=== PATIENT | male | born 1935 | race Caucasian/White ===

== ENCOUNTER 2023-10-22 15:46 | Inpatient (IN) | payer MEDICARE ==
[~2023-10-22] VITALS: Ht 180.3 cm; Wt 85.7 kg
[2023-10-22] MEDS ORDERED: TYLENOL325 M2 PO (16:44)
[2023-10-22] MEDS ORDERED: 'CLONIDINE0.1 MG PO (16:45)
[2023-10-22] MEDS ORDERED: DEPAKOTE125 M1 PO (16:46)
[2023-10-22] MEDS ORDERED: DOCUSATE SOD100 MG PO (16:47)
[2023-10-22] MEDS ORDERED: VISTARIL25 MG PO (16:48)
[2023-10-22] MEDS ORDERED: MILK OF MA400 MG/53 PO (16:49)
[2023-10-22] MEDS ORDERED: REMERON15 M2 PO (16:50)
[2023-10-22] MEDS ORDERED: ALDACTONE25 M1 PO (16:50)
[2023-10-22] MEDS ORDERED: TRAMADOL HCL50 MG PO (16:51)
[2023-10-22] MEDS ORDERED: ATIVAN T (16:52)
[2023-10-22] MEDS ORDERED: RISPERIDONE M-0.5 MG PO (16:53)
[2023-10-22 17:42] VITALS: BP 130/78
[2023-10-22] MEDS ORDERED: Magnesium Hydroxide 30 ML UDC PO PRN ×2 (18:45→20:20)
[2023-10-22] MEDS ORDERED: ACETAMINOPHEN 325 MG TAB PO PRN (18:45)
[2023-10-22] MEDS ORDERED: MG-AL HYDROXIDE/SIMETICONE 30 ML UDC PO PRN (18:45)
[2023-10-22] MEDS ORDERED: LORazepam 1 MG TAB PO PRN (18:55)
[2023-10-22] MEDS ORDERED: LORazepam 2 MG/ML VIAL IM PRN (18:55)
[2023-10-22] MEDS ORDERED: Water, Sterile 10 ML VIAL IM PRN (19:00)
[2023-10-22] MEDS ORDERED: Ziprasidone Mesylate 20 MG VIAL IM PRN (19:00)
[2023-10-22 20:00] VITALS: BP 150/91
[2023-10-22] MEDS ORDERED: cloNIDine Hydrochloride 0.1 MG TAB PO PRN (20:20)
[2023-10-22] MEDS ORDERED: DOCUSATE SODIUM 100 MG CAP PO SCH (21:00)
[2023-10-22] MEDS ORDERED: RISPERIDONE 0.5 MG ODT OGT SCH (21:00)
[2023-10-22] MEDS ORDERED: Memantine Hydrochloride 5 MG TAB PO SCH (21:00)
[2023-10-23 06:51] LABS: BASO % 0.4 % (0.0-1.0); EOS # 0.2 10*3/uL (0.0-0.4); EOS % 3.8 % (1.0-4.0); HEMATOCRIT 43.3 % (42.0-52.0); LYMPH # 1.6 10*3/uL (1.3-4.4); LYMPH % 29.2 % (27.0-41.0); MEAN CELL VOLUME 96.4 fl (80.0-94.0); MEAN CORPUSCULAR HGB 32.5 pg (27.0-31.0); MEAN CORPUSCULAR HGB CONC 33.7 g/dl (33.0-37.0); MEAN PLATELET VOLUME 10.6 fl (9.6-12.3); MONO # 0.7 10*3/uL (0.1-1.0); NEUT % 54.4 % (47.0-73.0); PLATELET COUNT AUTOMATED 189 10*3/uL (130-400); RED BLOOD COUNT 4.49 10*6/uL (4.50-5.90); RED CELL DISTRI WIDTH 12.9 % (0-14.5); WHITE BLOOD COUNT 5.5 10*3/uL (4.8-10.8)
[2023-10-23 07:22] LABS: ALKALINE PHOSPHATASE 66 U/L (46-116); BUN 11 mg/dl (9-23); CHLORIDE 105 mmol/L (98-107); CHOLESTEROL 222 mg/dL (<200); LDL CHOLESTEROL 153 mg/dL (9-159); POTASSIUM 3.8 mmol/L (3.4-5.1); SGPT/ALT 7 U/L (5-49); TOTAL PROTEIN 6.9 gm/dL (6.0-8.0); TRIGLYCERIDES 115 mg/dl (<150)
[2023-10-23 07:35] LABS: VITAMIN D, 25-HYDROXY 47.8 ng/mL (30-100)
[2023-10-23 08:00] VITALS: BP 111/71
[2023-10-23] MEDS ORDERED: Rivastigmine Tartrate 4.6 MG/24 HR PATCH T SCH (09:00)
[2023-10-23] MEDS ORDERED: SPIRONOLACTONE 25 MG TAB PO SCH (09:00)
[2023-10-23 20:00] VITALS: BP 93/60
[2023-10-24 08:00] VITALS: BP 146/82
[2023-10-24] MEDS ORDERED: Memantine Hydrochloride 5 MG TAB PO SCH (09:00)
[2023-10-24 18:30] VITALS: BP 98/77
[2023-10-25 08:00] VITALS: BP 144/78
[2023-10-25] MEDS ORDERED: Rivastigmine Tartrate 9.5 MG/24 HR PATCH T SCH (09:00)
[2023-10-25 19:22] VITALS: BP 133/78
[2023-10-26] MEDS ORDERED: QUETIAPINE FUMARATE 25 MG TAB PO SCH ×2 (09:00→21:00)
[2023-10-26] MEDS ORDERED: Memantine Hydrochloride 5 MG TAB PO SCH (09:00)
[2023-10-26] MEDS ORDERED: RISPERIDONE 0.5 MG ODT OGT SCH (13:00)
[2023-10-26 20:00] VITALS: BP 138/74
[2023-10-26] MEDS ORDERED: QUETIAPINE FUMARATE 50 MG TAB PO SCH (21:00)
[2023-10-26] MEDS ORDERED: Memantine Hydrochloride 10 MG TAB PO SCH (21:00)
[2023-10-27 08:00] VITALS: BP 163/84
[2023-10-27 16:34] LABS: BILIRUBIN Negative (Negative); BLOOD 2+ (Negative); CLARITY Cloudy (Clear); COLOR Yellow (Yellow); GLUCOSE Negative (Negative); KETONE Trace (Negative); LEUKO ESTERASE Trace (Negative); NITRITE Negative (Negative); PH 5.5 (4.5-8.0)
[2023-10-27 16:53] LABS: RBC 21-30 rbc/hpf (0-2)
[2023-10-27 16:55] LABS: BACTERIA 1+
[2023-10-27 18:51] VITALS: BP 143/88
[2023-10-27] MEDS ORDERED: hydrOXYzine pamoate 25 MG CAP PO PRN (19:10)
[2023-10-27] MEDS ORDERED: QUETIAPINE FUMARATE 50 MG TAB PO SCH (21:00)
[2023-10-28 08:00] VITALS: BP 147/83
[2023-10-28] MEDS ORDERED: RIVASTIGMINE 13.3 MG/24 HR TDM T SCH (09:00)
[2023-10-28] MEDS ORDERED: hydrOXYzine hydrochloride 50 MG/ML VIAL IM PRN (10:15)
[2023-10-28 20:00] VITALS: BP 115/81
[2023-10-28] MEDS ORDERED: Memantine Hydrochloride 10 MG TAB PO SCH (21:00)
[2023-10-29 07:38] VITALS: BP 166/80
[2023-10-29] MEDS ORDERED: QUETIAPINE FUMARATE 50 MG TAB PO SCH (13:00)
[2023-10-29 20:32] VITALS: BP 139/68
[2023-10-30 08:00] VITALS: BP 115/67
[2023-10-30 20:00] VITALS: BP 130/73
[2023-10-31 07:48] LABS: BASO % 0.5 % (0.0-1.0); EOS # 0.1 10*3/uL (0.0-0.4); EOS % 2.4 % (1.0-4.0); HEMATOCRIT 40.5 % (42.0-52.0); LYMPH # 2.2 10*3/uL (1.3-4.4); LYMPH % 37.7 % (27.0-41.0); MEAN CELL VOLUME 95.5 fl (80.0-94.0); MEAN CORPUSCULAR HGB 32.1 pg (27.0-31.0); MEAN CORPUSCULAR HGB CONC 33.6 g/dl (33.0-37.0); MONO % 16.7 % (3.0-9.0); NEUT # 2.5 10*3/uL (2.3-7.9); NEUT % 42.5 % (47.0-73.0); PLATELET COUNT AUTOMATED 181 10*3/uL (130-400); RED BLOOD COUNT 4.24 10*6/uL (4.50-5.90); RED CELL DISTRI WIDTH 12.7 % (0-14.5); WHITE BLOOD COUNT 5.8 10*3/uL (4.8-10.8)
[2023-10-31 08:13] LABS: ALKALINE PHOSPHATASE 68 U/L (46-116); BUN 14 mg/dl (9-23); CHLORIDE 106 mmol/L (98-107); POTASSIUM 3.5 mmol/L (3.4-5.1); SGPT/ALT 19 U/L (5-49); TOTAL PROTEIN 6.9 gm/dL (6.0-8.0)
[2023-10-31 09:21] VITALS: BP 118/65
[2023-10-31 20:00] VITALS: BP 134/68
[2023-11-01 07:47] VITALS: BP 135/84
[2023-11-01 20:00] VITALS: BP 151/84
[2023-11-02 07:32] VITALS: BP 131/76; BP 151/86
[2023-11-03 20:00] VITALS: BP 120/92
[2023-11-04 07:57] VITALS: BP 142/88
[2023-11-04 20:00] VITALS: BP 119/102
[2023-11-05 07:49] VITALS: BP 150/70
[2023-11-05 19:11] VITALS: BP 128/91
[2023-11-06 07:48] VITALS: BP 160/77
[2023-11-06 08:10] VITALS: BP 140/80
[2023-11-06] MEDS ORDERED: MEMANTINE HCL10 MG PO (10:13)
[2023-11-06] MEDS ORDERED: RIVASTIGMINE1 EAC2 T (10:13)
[2023-11-06] MEDS ORDERED: QUETIAPINE FUMA50 M1 PO (10:13)
== END 2023-11-06 12:29 | DRG 883 ==
LOC: 3N 15:46
PROVIDERS: Nurse Practitioner; ADMIT Psychiatry & Neurology Psychiatry; ATTEND Psychiatry & Neurology Psychiatry
PROC: GZHZZZZ Group Psychotherapy (ICD-10-PCS; principal; 2023-10-25)
PROC: GZ51ZZZ Individual Psychotherapy, Behavioral (ICD-10-PCS; 2023-10-25)
DX: F63.81 Intermittent explosive disorder (principal); E87.1 Hypo-osmolality and hyponatremia; F25.9 Schizoaffective disorder, unspecified; G30.9 Alzheimer's disease, unspecified; F02.80 Dementia in other diseases classified elsewhere, unspecified severity, without behavioral disturbance, psychotic disturbance, mood disturbance, and anxiety; I10 Essential (primary) hypertension; Z66 Do not resuscitate; Z79.1 Long term (current) use of non-steroidal anti-inflammatories (NSAID); Z79.899 Other long term (current) drug therapy

== ENCOUNTER 2024-01-02 15:29 | Inpatient (IN) | payer MEDICARE ==
[~2024-01-02 15:29] MED LIST: 'CLONIDINE0.1 MG PO; ALDACTONE25 M1 PO; ATIVAN T; DEPAKOTE125 M1 PO; DOCUSATE SOD100 MG PO; MEMANTINE HCL10 MG PO; MILK OF MA400 MG/53 PO; QUETIAPINE FUMA50 M1 PO; REMERON15 M2 PO; RISPERIDONE M-0.5 MG PO; RIVASTIGMINE1 EAC2 T; TRAMADOL HCL50 MG PO; TYLENOL325 M2 PO; VISTARIL25 MG PO
[2024-01-02 15:43] VITALS: BP 179/94
[2024-01-02] MEDS ORDERED: NAMENDA-5 PO (15:51)
[2024-01-02] MEDS ORDERED: QUETIAPINE FUM100 M1 PO (15:52)
[2024-01-02 16:06] LABS: BASO % 0.6 % (0.0-1.0); EOS # 0.1 10*3/uL (0.0-0.4); EOS % 2.2 % (1.0-4.0); HEMATOCRIT 43.7 % (42.0-52.0); LYMPH # 1.8 10*3/uL (1.3-4.4); LYMPH % 33.4 % (27.0-41.0); MEAN CELL VOLUME 94.4 fl (80.0-94.0); MEAN CORPUSCULAR HGB 31.5 pg (27.0-31.0); MEAN CORPUSCULAR HGB CONC 33.4 g/dl (33.0-37.0); MEAN PLATELET VOLUME 10.3 fl (9.6-12.3); MONO # 0.4 10*3/uL (0.1-1.0); MONO % 8.2 % (3.0-9.0); NEUT % 55.2 % (47.0-73.0); PLATELET COUNT AUTOMATED 213 10*3/uL (130-400); RED BLOOD COUNT 4.63 10*6/uL (4.50-5.90); RED CELL DISTRI WIDTH 12.9 % (0-14.5); WHITE BLOOD COUNT 5.4 10*3/uL (4.8-10.8)
[2024-01-02 16:32] LABS: BUN 16 mg/dl (9-23); CHLORIDE 104 mmol/L (98-107); POTASSIUM 4.2 mmol/L (3.4-5.1)
[2024-01-02 16:36] LABS: ETHYL ALCOHOL < 3.0 mg/dl (<3)
[2024-01-02 20:00] VITALS: BP 142/70
[2024-01-02] MEDS ORDERED: hydrOXYzine pamoate 25 MG CAP PO PRN (20:05)
[2024-01-02] MEDS ORDERED: hydrOXYzine hydrochloride 50 MG/ML VIAL IM PRN (20:05)
[2024-01-02] MEDS ORDERED: Ziprasidone Mesylate 20 MG VIAL IM PRN (20:05)
[2024-01-02] MEDS ORDERED: Water, Sterile 10 ML VIAL IM PRN (20:10)
[2024-01-02] MEDS ORDERED: ACETAMINOPHEN 325 MG TAB PO PRN (20:30)
[2024-01-02] MEDS ORDERED: Magnesium Hydroxide 30 ML UDC PO PRN (20:30)
[2024-01-02] MEDS ORDERED: MG-AL HYDROXIDE/SIMETICONE 30 ML UDC PO PRN (20:30)
[2024-01-02] MEDS ORDERED: Menthol/Zinc Oxide 4 GM THIN T PRN (20:35)
[2024-01-02] MEDS ORDERED: Memantine Hydrochloride 5 MG TAB PO SCH (21:00)
[2024-01-02] MEDS ORDERED: QUETIAPINE FUMARATE 100 MG TAB PO SCH (21:00)
[2024-01-02] MEDS ORDERED: DIVALPROEX (DR) 250 MG TAB PO SCH (21:00)
[2024-01-03 03:04] LABS: BILIRUBIN Negative (Negative); BLOOD Negative (Negative); CLARITY Clear (Clear); COLOR Yellow (Yellow); GLUCOSE Negative (Negative); KETONE Negative (Negative); LEUKO ESTERASE Negative (Negative); NITRITE Negative (Negative); PH 6.5 (4.5-8.0); UROBILINOGEN 0.2 E.U./dl (0.0-1.0)
[2024-01-03 03:10] LABS: URINE AMPHETAMINES Negative (1000ng/ml); URINE BARBITURATES Negative (200ng/ml); URINE BENZODIAZEPINES Negative (200ng/ml); URINE CANNABINOIDS (THC) Negative (50ng/ml); URINE COCAINE Negative (300ng/ml); URINE METHADONE Negative (300ng/ml); URINE OPIATES Negative (300ng/ml); URINE PHENCYCLIDINE Negative (25ng/ml)
[2024-01-03 03:11] LABS: WBC 0-2 wbc/hpf (0-5)
[2024-01-03 08:00] VITALS: BP 160/97
[2024-01-03] MEDS ORDERED: DOCUSATE SODIUM 100 MG CAP PO SCH (09:00)
[2024-01-03] MEDS ORDERED: SPIRONOLACTONE 25 MG TAB PO SCH (09:00)
[2024-01-03] MEDS ORDERED: RIVASTIGMINE 13.3 MG/24 HR TDM T SCH (09:00)
[2024-01-03 10:57] LABS: VITAMIN D, 25-HYDROXY 35.4 ng/mL (30-100)
[2024-01-03] MEDS ORDERED: QUETIAPINE FUMARATE 100 MG TAB PO SCH (13:00)
[2024-01-03 19:55] VITALS: BP 146/92
[2024-01-04] MEDS ORDERED: DIVALPROEX SODIUM 125 MG TAB PO SCH (09:00)
[2024-01-04 20:00] VITALS: BP 122/62
[2024-01-04] MEDS ORDERED: DIVALPROEX SODIUM 125 MG CAP PO SCH (21:00)
[2024-01-05 20:00] VITALS: BP 124/96
[2024-01-06] MEDS ORDERED: LORazepam 2 MG/ML VIAL IM ONE ×2 (19:00→19:05)
[2024-01-06 20:00] VITALS: BP 143/73
[2024-01-07 06:43] LABS: BASO % 0.1 % (0.0-1.0); EOS % 0.1 % (1.0-4.0); HEMATOCRIT 42.4 % (42.0-52.0); LYMPH # 1.8 10*3/uL (1.3-4.4); LYMPH % 24.2 % (27.0-41.0); MEAN CELL VOLUME 92.8 fl (80.0-94.0); MEAN CORPUSCULAR HGB 31.3 pg (27.0-31.0); MEAN CORPUSCULAR HGB CONC 33.7 g/dl (33.0-37.0); MEAN PLATELET VOLUME 10.5 fl (9.6-12.3); MONO # 0.3 10*3/uL (0.1-1.0); MONO % 4.4 % (3.0-9.0); NEUT # 5.4 10*3/uL (2.3-7.9); NEUT % 71.1 % (47.0-73.0); PLATELET COUNT AUTOMATED 222 10*3/uL (130-400); RED BLOOD COUNT 4.57 10*6/uL (4.50-5.90); RED CELL DISTRI WIDTH 12.6 % (0-14.5); WHITE BLOOD COUNT 7.6 10*3/uL (4.8-10.8)
[2024-01-07 07:02] LABS: ALKALINE PHOSPHATASE 75 U/L (46-116); BUN 19 mg/dl (9-23); CHLORIDE 105 mmol/L (98-107); POTASSIUM 3.9 mmol/L (3.4-5.1); TOTAL PROTEIN 7.3 gm/dL (6.0-8.0)
[2024-01-07 07:16] LABS: SGPT/ALT < 7 U/L (5-49)
[2024-01-07 08:10] VITALS: BP 162/92
[2024-01-07] MEDS ORDERED: DIVALPROEX SODIUM 125 MG CAP PO SCH (13:00)
[2024-01-08 08:00] VITALS: BP 129/76
[2024-01-08 20:00] VITALS: BP 134/89
[2024-01-09 07:55] VITALS: BP 148/86
[2024-01-09 20:00] VITALS: BP 112/99
[2024-01-10 08:00] VITALS: BP 117/57
[2024-01-11] MEDS ORDERED: QUETIAPINE FUM100 M3 PO (06:32)
[2024-01-11] MEDS ORDERED: DIVALPROEX SOD125 M1 PO (06:32)
[2024-01-11 08:00] VITALS: BP 135/70
== END 2024-01-11 14:25 | DRG 883 ==
LOC: ED 15:29 → EDHOLD 18:17 → 3N 18:17
PROVIDERS: Counselor Professional; Physician Assistant Medical; ADMIT Psychiatry & Neurology Psychiatry; ATTEND Psychiatry & Neurology Psychiatry
PROC: GZHZZZZ Group Psychotherapy (ICD-10-PCS; principal; 2024-01-03)
PROC: GZ51ZZZ Individual Psychotherapy, Behavioral (ICD-10-PCS; 2024-01-03)
DX: F63.81 Intermittent explosive disorder (principal); F02.82 Dementia in other diseases classified elsewhere, unspecified severity, with psychotic disturbance; F02.818 Dementia in other diseases classified elsewhere, unspecified severity, with other behavioral disturbance; F02.83 Dementia in other diseases classified elsewhere, unspecified severity, with mood disturbance; G30.9 Alzheimer's disease, unspecified; Z66 Do not resuscitate; I10 Essential (primary) hypertension; Z79.899 Other long term (current) drug therapy; F25.0 Schizoaffective disorder, bipolar type; R73.9 Hyperglycemia, unspecified; E78.2 Mixed hyperlipidemia